=== PATIENT | male | born 1985 | race Caucasian/White ===

== ENCOUNTER 2017-09-27 13:28 | Emergency (ER) | payer OTHER ==
[~2017-09-27] VITALS: Ht 185.4 cm; Wt 81.7 kg
[~2017-09-27 13:28] MED LIST: HYDACE5 PO; SULTRIDS PO
[2017-09-27] MEDS ORDERED: LISI5 PO (13:33)
[2017-09-27] MEDS ORDERED: Norco 5-325 Ta1 EACH PO (14:33)
== END 2017-09-27 14:45 | disposition home or self-care (01) ==
LOC: ER 13:28
DX: S49.92XA Unspecified injury of left shoulder and upper arm, initial encounter (principal); I10 Essential (primary) hypertension; F17.200 Nicotine dependence, unspecified, uncomplicated; Z88.0 Allergy status to penicillin; Z79.899 Other long term (current) drug therapy; W01.0XXA Fall on same level from slipping, tripping and stumbling without subsequent striking against object, initial encounter
CPT/HCPCS: 73030; 96372; 99283-25; J1885

== ENCOUNTER 2018-03-26 16:29 | Emergency (ER) | payer OTHER ==
[~2018-03-26] VITALS: Ht 185.4 cm; Wt 86.2 kg
[~2018-03-26 16:29] MED LIST changes: +LISI5 PO; +Norco 5-325 Ta1 EACH PO
== END 2018-03-26 18:17 | disposition home or self-care (01) ==
LOC: ER 16:29
DX: M54.5 Low back pain (principal); R03.0 Elevated blood-pressure reading, without diagnosis of hypertension; V43.62XA Car passenger injured in collision with other type car in traffic accident, initial encounter; Z88.0 Allergy status to penicillin
CPT/HCPCS: 72100; 99284-25

== ENCOUNTER 2018-08-29 14:56 | Emergency (ER) | payer OTHER ==
[~2018-08-29] VITALS: Ht 185.4 cm; Wt 81.7 kg
== END 2018-08-29 17:01 | disposition home or self-care (01) ==
LOC: ER 14:56
DX: S91.111A Laceration without foreign body of right great toe without damage to nail, initial encounter (principal); W19.XXXA Unspecified fall, initial encounter; Z88.0 Allergy status to penicillin; I10 Essential (primary) hypertension; F17.200 Nicotine dependence, unspecified, uncomplicated
CPT/HCPCS: 12002; 73630; 90471; 90714; 99283-25

== ENCOUNTER → 2018-11-01 | Outpatient (CLI) | payer OTHER ==
[2018-11-04 04:06] LABS: CHLAMYDIA TRACHOMATIS, NAA Negative (Negative); NEISSERIA GONORRHOEAE, NAA Negative (Negative)
== END ==
LOC: LAB 13:29 → LAB SHORT 13:29
PROVIDERS: Registered Nurse Community Health
DX: Z11.3 Encounter for screening for infections with a predominantly sexual mode of transmission (principal); Z72.51 High risk heterosexual behavior; Z20.2 Contact with and (suspected) exposure to infections with a predominantly sexual mode of transmission
CPT/HCPCS: 87491; 87591